=== PATIENT | male | born 1995 | race Caucasian/White ===

== ENCOUNTER 2017-10-17 04:57 | Emergency (ER) | payer OTHER ==
[2017-10-17 05:29] LABS: BASOPHIL % 0.4 % (0-2); PLATELET COUNT 216 x10^3mcL (130-400); RED CELL DISTRIBUTION WIDTH 13.3 % (11.5-14.5)
[2017-10-17 05:37] LABS: CARBON DIOXIDE 26.6 mmol/L (21-32); CHLORIDE SERUM 101 mmol/L (98-107); CREATININE SERUM 0.9 mg/dL (0.7-1.3); GFR1 > 60 mL/min; GLUCOSE SERUM 103 mg/dL (74-106); SODIUM SERUM 138 mmol/L (136-145)
[2017-10-17 05:42] LABS: ALKALINE PHOSPHATASE 85 U/L (46-116); ALT/SGPT 32 U/L (16-63); AST/SGOT 31 U/L (15-37); BILIRUBIN TOTAL 0.57 mg/dL (0.20-1.00); LIPASE 117 IU/L (73-393)
[2017-10-17 06:54] VITALS: BP 131/70
== END 2017-10-17 06:54 | disposition home or self-care (01) ==
LOC: ED 04:57
PROVIDERS: Emergency Medicine
DX: R10.32 Left lower quadrant pain (principal); R11.2 Nausea with vomiting, unspecified; Z90.49 Acquired absence of other specified parts of digestive tract
CPT/HCPCS: J1885

== ENCOUNTER 2018-04-16 21:30 | Emergency (ER) | payer OTHER ==
[~2018-04-16] VITALS: Ht 180.3 cm; Wt 72.6 kg
[2018-04-16 21:35] VITALS: Ht 180.3 cm; Wt 72.6 kg
[2018-04-16 22:23] VITALS: BP 137/79
== END 2018-04-16 22:23 | disposition left against medical advice (07) ==
LOC: ED 21:30
DX: Z53.21 Procedure and treatment not carried out due to patient leaving prior to being seen by health care provider (principal)

== ENCOUNTER 2018-04-17 13:18 | Emergency (ER) | payer OTHER ==
[~2018-04-17] VITALS: Ht 180.3 cm; Wt 72.1 kg
[2018-04-17 15:44] VITALS: BP 126/68
== END 2018-04-17 15:44 | disposition home or self-care (01) ==
LOC: ED 13:18
DX: S00.83XA Contusion of other part of head, initial encounter (principal); K08.89 Other specified disorders of teeth and supporting structures; F17.200 Nicotine dependence, unspecified, uncomplicated; Z90.49 Acquired absence of other specified parts of digestive tract; Y04.8XXA Assault by other bodily force, initial encounter; Y93.89 Activity, other specified; Y92.89 Other specified places as the place of occurrence of the external cause; Y99.8 Other external cause status
CPT/HCPCS: 99406

== ENCOUNTER 2019-11-27 19:34 | Emergency (ER) | payer OTHER ==
[~2019-11-27] VITALS: Ht 180.3 cm; Wt 77.1 kg
[2019-11-27 19:47] VITALS: Ht 180.3 cm; Wt 77.1 kg
[2019-11-27 21:55] VITALS: BP 118/87
== END 2019-11-27 21:20 | disposition home or self-care (01) ==
LOC: ED 19:34
DX: R65.10 Systemic inflammatory response syndrome (SIRS) of non-infectious origin without acute organ dysfunction (principal); H57.89 Other specified disorders of eye and adnexa; Z90.49 Acquired absence of other specified parts of digestive tract
CPT/HCPCS: J2930

== ENCOUNTER 2020-07-31 09:25 | Emergency (ER) | payer OTHER ==
[~2020-07-31] VITALS: Ht 180.3 cm; Wt 79.8 kg
[2020-07-31 09:28] VITALS: Ht 180.3 cm; Wt 79.8 kg
[2020-07-31] MEDS ORDERED: IBU600 M2 PO (11:56)
[2020-07-31] MEDS ORDERED: POLYSPORIN1 OI1 TOP (11:56)
[2020-07-31] MEDS ORDERED: ACETAMINOPHEN-H1 TA1 PO (11:56)
[2020-07-31 12:00] VITALS: BP 116/71
== END 2020-07-31 12:00 | disposition home or self-care (01) ==
LOC: ED 09:25
DX: S61.210A Laceration without foreign body of right index finger without damage to nail, initial encounter (principal); S63.612A Unspecified sprain of right middle finger, initial encounter; Z90.89 Acquired absence of other organs; W23.0XXA Caught, crushed, jammed, or pinched between moving objects, initial encounter; Y93.89 Activity, other specified; Y92.810 Car as the place of occurrence of the external cause; Y99.8 Other external cause status
CPT/HCPCS: 90715; Q0162